=== PATIENT | male | born 1970 | race Two or more races ===

== ENCOUNTER → 2017-05-30 | Outpatient (CLI) | END | disposition home or self-care (01) ==

== ENCOUNTER → 2017-08-09 | Outpatient (CLI) | END | disposition home or self-care (01) ==

== ENCOUNTER 2017-10-26 08:24 | Day surgery (SDC) | END 2017-10-26 14:40 | disposition home or self-care (01) ==

== ENCOUNTER → 2017-11-05 | Outpatient (CLI) | END | disposition home or self-care (01) ==